=== PATIENT | male | born 1950 | race Caucasian/White ===

== ENCOUNTER 2020-04-01 16:10 | Inpatient (IN) | payer BC ==
[~2020-04-01] VITALS: Ht 177.8 cm; Wt 104.3 kg
[2020-04-01 18:42] LABS: HEMOGLOBIN 14.6 gm/dl (14.0-17.5); RED BLOOD COUNT 4.59 M/UL (4.20-5.50); WHITE BLOOD COUNT 13.8 K/UL (4.5-11.0)
[2020-04-01 18:48] LABS: BUN/CREATININE RATIO 32 (0-10)
[2020-04-01] MEDS ORDERED: DOXYCYCLINE MO100 MG PO (22:07)
[2020-04-01] MEDS ORDERED: LANTUS SOL100 UNIT/1 SQ (22:07)
[2020-04-01] MEDS ORDERED: CRESTOR 10 MG T10 MG PO (22:08)
[2020-04-01] MEDS ORDERED: LISINOPRIL20 MG PO (22:08)
[2020-04-01] MEDS ORDERED: METFORMIN HCL1000 MG PO (22:09)
[2020-04-01] MEDS ORDERED: VITAMIN D21250 MCG PO (22:10)
[2020-04-03 04:17] LABS: HEMOGLOBIN 14.2 gm/dl (14.0-17.5); RED BLOOD COUNT 4.5 M/UL (4.20-5.50)
[2020-04-03 04:19] LABS: WHITE BLOOD COUNT 9.7 K/UL (4.5-11.0)
[2020-04-03 04:41] LABS: BUN/CREATININE RATIO 19 (0-10)
[2020-04-04 04:31] LABS: HEMOGLOBIN 13.8 gm/dl (14.0-17.5); RED BLOOD COUNT 4.41 M/UL (4.20-5.50); WHITE BLOOD COUNT 10.4 K/UL (4.5-11.0)
[2020-04-04 05:01] LABS: BUN/CREATININE RATIO 18 (0-10)
[2020-04-05 04:23] LABS: HEMOGLOBIN 13.5 gm/dl (14.0-17.5); RED BLOOD COUNT 4.3 M/UL (4.20-5.50); WHITE BLOOD COUNT 9.5 K/UL (4.5-11.0)
[2020-04-05 04:35] LABS: BUN/CREATININE RATIO 15 (0-10)
[2020-04-06 06:20] LABS: HEMOGLOBIN 14.2 gm/dl (14.0-17.5); RED BLOOD COUNT 4.41 M/UL (4.20-5.50)
[2020-04-06 06:21] LABS: BUN/CREATININE RATIO 19 (0-10)
[2020-04-06 06:35] LABS: WHITE BLOOD COUNT 15.7 K/UL (4.5-11.0)
[2020-04-07 03:18] LABS: HEMOGLOBIN 14.3 gm/dl (14.0-17.5); RED BLOOD COUNT 4.51 M/UL (4.20-5.50); WHITE BLOOD COUNT 12.4 K/UL (4.5-11.0)
[2020-04-07 03:55] LABS: BUN/CREATININE RATIO 19 (0-10)
[2020-04-08 06:36] LABS: HEMOGLOBIN 14.4 gm/dl (14.0-17.5); RED BLOOD COUNT 4.57 M/UL (4.20-5.50); WHITE BLOOD COUNT 10.4 K/UL (4.5-11.0)
[2020-04-09 02:29] LABS: RED BLOOD COUNT 4.4 M/UL (4.20-5.50); WHITE BLOOD COUNT 9.8 K/UL (4.5-11.0)
[2020-04-09 02:50] LABS: BUN/CREATININE RATIO 22 (0-10)
[2020-04-10 03:16] LABS: HEMOGLOBIN 14.3 gm/dl (14.0-17.5); RED BLOOD COUNT 4.46 M/UL (4.20-5.50)
[2020-04-10 03:17] LABS: WHITE BLOOD COUNT 12.9 K/UL (4.5-11.0)
[2020-04-10 03:34] LABS: BUN/CREATININE RATIO 22 (0-10)
[2020-04-11 06:33] LABS: HEMOGLOBIN 14.8 gm/dl (14.0-17.5); RED BLOOD COUNT 4.54 M/UL (4.20-5.50); WHITE BLOOD COUNT 14.3 K/UL (4.5-11.0)
[2020-04-11 07:04] LABS: BUN/CREATININE RATIO 23 (0-10)
[2020-04-11] MEDS ORDERED: LEVOFLOXACIN500 MG PO (09:45)
--- NOTE | 2020-04-11 11:45 | NUR ---
04/11/20 1140 OK TO CALL CAB APPROVED BY VEL ABDIRESPIRATORY THERAPY INSTRUCTOR
== END 2020-04-11 12:07 | disposition home or self-care (01) | DRG 617 ==
LOC: ER1 16:10 → M/S 20:33 → CDU 20:33 → M/S 04-03 08:22
PROVIDERS: Family Medicine; Internal Medicine; Physician Assistant; Physician Assistant Medical; Podiatrist Foot & Ankle Surgery; ADMIT Internal Medicine
PROC: 0Y6W0Z0 Detachment at Left 4th Toe, Complete, Open Approach (ICD-10-PCS; principal; 2020-04-05 15:00)
PROC: 0HRNXK3 Replacement of Left Foot Skin with Nonautologous Tissue Substitute, Full Thickness, External Approach (ICD-10-PCS; 2020-04-10)
PROC: 0JBR0ZZ Excision of Left Foot Subcutaneous Tissue and Fascia, Open Approach (ICD-10-PCS; 2020-04-11)
DX: E11.621 Type 2 diabetes mellitus with foot ulcer (principal); L03.116 Cellulitis of left lower limb; L02.612 Cutaneous abscess of left foot; N17.9 Acute kidney failure, unspecified; E87.1 Hypo-osmolality and hyponatremia; Z20.822 Contact with and (suspected) exposure to COVID-19; I10 Essential (primary) hypertension; E78.5 Hyperlipidemia, unspecified; L97.529 Non-pressure chronic ulcer of other part of left foot with unspecified severity; E66.01 Morbid (severe) obesity due to excess calories; Z79.4 Long term (current) use of insulin; Z90.49 Acquired absence of other specified parts of digestive tract; Z68.33 Body mass index [BMI] 33.0-33.9, adult
CPT/HCPCS: 36415; 73630; 73718; 80048; 80053; 80202; 82962; 83605; 83735; 85025; 85027; 86140; 87040; 87070; 87077; 87186; 87205; 93005; 93926; 94660; 94760; 96365; 96366; 96368; 96376; 97161; 97164; 99285; J0360; J1100; J1650; J2001; J2250; J2405; J2543; J2704; J2795; J3010; J3370; J7030; J7070; J7120; Q4133; U0002